=== PATIENT | male | born 1950 | race Caucasian/White ===

== ENCOUNTER 2022-04-09 19:05 | Emergency (ER) | payer OTHER, SELFPAY ==
[2022-04-09 19:24] VITALS: BP 234/107; PULSE 70; RESP 18; TEMP 36.7; O2SAT 98; BMI 25.7
--- NOTE | 2022-04-09 19:29 | DI.RAD.S_ITS ---
PROCEDURE: XR CHEST 1V INDICATIONS: chest pain TECHNIQUE: One view of the chest was acquired. COMPARISON: None. FINDINGS: Surgical changes and devices: None. Lungs and pleura: Lungs are clear. No pleural effusions or pneumothorax. Mediastinum: Mediastinal contours appear normal. Heart size is normal. Bones and chest wall: No suspicious bony lesions. Overlying soft tissues appear unremarkable. IMPRESSION: 1. No acute cardiopulmonary disease. Dictated by: Patric Kaplan M.D. on 04/09/2022 at 21:03 Approved by: Patric Kaplan M.D. on 04/09/2022 at 21:03
[2022-04-09 19:35] VITALS: PULSE 72; RESP 18; O2SAT 97
[2022-04-09 19:45] VITALS: BP 189/89; PULSE 67; RESP 20; O2SAT 98
[2022-04-09 19:56] LABS: Add Manual Diff / Slide Review NO; Basophils Absolute Auto 0 /uL (0-100); Basophils Percent Auto 0.5 % (0-2); Eosinophils Absolute Auto 200 /uL (0-450); Eosinophils Percent Auto 1.7 % (2-4); Hematocrit 42.6 % (41-53); Hemoglobin 14.4 g/dL (13.5-17.5); Lymphocytes Absolute Auto 1700 /uL (1100-4500); Lymphocytes Percent Auto 18.7 % (25-40); Mean Corpuscular HGB Conc 33.7 % (30-36); Mean Corpuscular Hemoglobin 31.3 PG (26-34); Mean Corpuscular Volume 92.9 fL (80-100); Monocytes Absolute Auto 800 /uL (0-900); Monocytes Percent Auto 8.9 % (3-14); Neutrophils Absolute Auto 6200 /uL (1500-7000); Neutrophils Percent Auto 70.2 % (50-75); Platelet Count 263 X10^3/uL (150-400); Red Blood Cell Count 4.59 X10^6/uL (4.5-5.9); Red Cell Distribution Width 12.8 % (11.6-14.8); White Blood Cell Count 8.9 X10^3/uL (4.5-11.0)
[2022-04-09 20:00] VITALS: BP 196/93; PULSE 67; RESP 13; O2SAT 97
[2022-04-09 20:03] LABS: HEMOLYSIS 19 (0-50); Potassium 4.1 mmol/L (3.4-5.1)
[2022-04-09 20:04] LABS: Alanine Aminotransferase 19 IU/L (<50); Albumin 4.5 g/dL (3.5-5.0); Albumin Globulin Ratio 1.3 (1.0-2.8); Alkaline Phosphatase 58 U/L (38-126); Aspartate Aminotransferase 24 IU/L (17-59); BUN Creatinine Ratio 14.6 (6-22); Bilirubin Total 0.7 mg/dL (0.2-1.3); Blood Urea Nitrogen 14 mg/dL (9-20); Carbon Dioxide 25 mmol/L (22-32); Chloride 102 mmol/L (98-107); Creatine Kinase 201 U/L (55-170); Estimated Glomerular Filt Rate > 60 mL/min (>60); Globulin 3.5 g/dL (1.7-4.1); Glucose 103 mg/dL (80-110); Lipase 120 U/L (23-300); Magnesium 2.1 mg/dL (1.6-2.3); Sodium 138 mmol/L (137-145)
--- NOTE | 2022-04-09 20:04 | ED_ITS ---
HPI - General Adult General Chief complaint: Hypertension Stated complaint: High Blood Pressure Time Seen by Provider: 04/09/22 19:48 Source: patient Mode of arrival: Ambulatory History of Present Illness HPI narrative: Patient is a 71-year-old male. No prior history of high blood pressure. A couple weeks ago was seen in an outside facility because he was having some dizziness and lightheadedness. Was diagnosed with high blood pressure. Had a workup there to include a head CT. He was told to take his blood pressure at home. Was not started on any medicines. He has been taking his blood pressure at home. They have been ranging from the 160s to 190s systolic. Today he started have some fullness in his head and took his blood pressure was elevated so he came to the emergency department for evaluation. Denies chest pain. No shortness of breath. No lower extremity swelling. Has not tried anything for his symptoms prior to arrival. Related Data Previous Rx's Medication Instructions Recorded lisinopril 10 mg tablet 10 mg PO DAILY #30 tabs 04/09/22 Allergies Allergy/AdvReac Type Severity Reaction Status Date / Time No Known Allergies Allergy Uncoded 04/09/22 19:28 Review of Systems Constitutional Constitutional: Reports system reviewed and no additional complaints, except as documented ENT Ears, Nose, Mouth, and Throat: Reports system reviewed and no additional complaints, except as documented Cardiovascular Cardiovascular: Reports system reviewed and no additional complaints, except as documented Respiratory Respiratory: Reports system reviewed and no additional complaints, except as documented Gastrointestinal Gastrointestinal: Reports system reviewed and no additional complaints, except as documented Integumentary/Breasts Skin/Breast: Reports system reviewed and no additional complaints, except as documented Neurologic Neurologic: Reports system reviewed and no additional complaints, except as documented Patient History Medical History Pure hypercholesterolemia (09/18/16) Sensorineural hearing loss (SNHL) of both ears (09/18/16) Surgical History (Updated 09/25/17 @ 05:18 by Conversion Provider) History of tonsillectomy Family History (Updated 04/30/16 @ 00:00 by Conversion Provider) Brother Age: 73 Heart disease Social History Smoking Status: Never smoker Smoking Status: Never smoker Substance Use Type: does not use Exam Initial Vital Signs Initial Vital Signs: Vital Signs Temperature 98.0 F 04/09/22 19:24 Pulse Rate 70 04/09/22 19:24 Respiratory Rate 18 04/09/22 19:24 Blood Pressure 234/107 H 04/09/22 19:24 Pulse Oximetry 98 04/09/22 19:24 Oxygen Delivery Method 04/09/22 19:24 HENMT Head: normal to inspection and normocephalic Resp Effort & Inspection: normal respiratory effort Auscultation: clear to auscultation bilaterally Cardio Rate: regular rate Rhythm: regular rhythm GI Inspection: normal to inspection Palpation: soft and No tender Skin General: no rashes or lesions noted Neuro General: patient alert, patient awake, patient oriented x3 and moves all extremities Extrem General: No edema Course Orders Ordered: ED Orders 04/09/22 19:29 XR chest 1V Stat EKG-12 Lead Stat 04/09/22 19:40 Complete Blood Count AUTO DIFF Stat Comprehensive Metabolic Panel Stat Lipase Stat Magnesium Stat Troponin & CK Cardiac Panel Stat Discontinued Medications Lisinopril (Lisinopril 10 Mg Tablet) 10 mg PO NOW ONE Stop: 04/09/22 20:47 Last Admin: 04/09/22 20:58 Dose: 10 mg Documented By: ARETHA Vital Signs Vital signs: Vital Signs - 8 hr 04/09/22 19:24 04/09/22 19:35 04/09/22 19:45 Temperature 98.0 F Pulse Rate 70 72 Respiratory Rate 18 18 Blood Pressure 234/107 H 189/89 H Pulse Oximetry 98 97 Oxygen Delivery Method Room Air 04/09/22 19:45 04/09/22 20:00 04/09/22 20:00 Temperature Pulse Rate 67 67 Respiratory Rate 20 13 Blood Pressure 196/93 H Pulse Oximetry 98 97 Oxygen Delivery Method 04/09/22 20:30 04/09/22 20:30 04/09/22 21:00 Temperature Pulse Rate 65 67 Respiratory Rate 18 18 Blood Pressure 192/88 H 194/90 H Pulse Oximetry 96 96 Oxygen Delivery Method Medical Decision Making Lab Data Lab results reviewed: Yes I reviewed the patient's lab results. Result diagrams: 04/09/22 19:40 04/09/22 19:40 Labs: Lab Results 04/09/22 04/09/22 Range/Units 19:40 19:40 WBC 8.9 (4.5-11.0) X10^3/uL RBC 4.59 (4.5-5.9) X10^6/uL Hgb 14.4 (13.5-17.5) g/dL Hct 42.6 (41-53) % MCV 92.9 (80-100) fL MCH 31.3 (26-34) PG MCHC 33.7 (30-36) % RDW 12.8 (11.6-14.8) % Plt Count 263 (150-400) X10^3/uL Neut % (Auto) 70.2 (50-75) % Lymph % (Auto) 18.7 L (25-40) % [place] % (Auto) 8.9 (3-14) % Eos % (Auto) 1.7 L (2-4) % Baso % (Auto) 0.5 (0-2) % Neut # (Auto) 6200 (2380-2587) /uL Lymph # (Auto) 1700 (5948-9893) /uL [place] # (Auto) 800 (0-900) /uL Eos # (Auto) 200 (0-450) /uL Baso # (Auto) 0 (0-100) /uL Sodium 138 (137-145) mmol/L Potassium 4.1 (3.4-5.1) mmol/L Chloride 102 (98-107) mmol/L Carbon Dioxide 25 (22-32) mmol/L BUN 14 (9-20) mg/dL Creatinine 0.96 (0.66-1.25) mg/dL Estimated GFR > 60 (>60) mL/min BUN/Creatinine Ratio 14.6 (6-22) Glucose 103 (80-110) mg/dL Calcium 9.0 (8.4-10.2) mg/dL Magnesium 2.1 (1.6-2.3) mg/dL Total Bilirubin 0.7 (0.2-1.3) mg/dL AST 24 (17-59) IU/L ALT 19 (<50) IU/L Alkaline Phosphatase 58 (38-126) U/L Total Creatine Kinase 201 H (55-170) U/L CK-MB (CK-2) 2.79 H (<2.37) ng/mL CK-MB (CK-2) Rel Index 1.4 L (1.5-5.0) % Troponin I < 0.012 (0.01-0.034) ng/mL Total Protein 8.0 (6.3-8.2) g/dL Albumin 4.5 (3.5-5.0) g/dL Globulin 3.5 (1.7-4.1) g/dL Albumin/Globulin Ratio 1.3 (1.0-2.8) Lipase 120 (23-300) U/L Imaging Data Chest x-ray: Radiologist's Impression: [address] [address] XRay Report Signed Patient: Leonardo Rudd MR#: [id number] : 1950 Acct:[id number] Age/Sex: 71 / M Date of Service: 04/09/22 Loc: ED Accession Number: [id number] ?? Procedure: XR chest 1V Ordering Provider: Bart Ellis D.O. PROCEDURE:? XR CHEST 1V ? INDICATIONS:? chest pain ? TECHNIQUE:? One view of the chest was acquired.? ? COMPARISON:? None. ? FINDINGS:? ? Surgical changes and devices:? None.? ? Lungs and pleura:? Lungs are clear.? No pleural effusions or pneumothorax.? ? Mediastinum:? Mediastinal contours appear normal.? Heart size is normal.? ? Bones and chest wall:? No suspicious bony lesions.? Overlying soft tissues appear unremarkable.? ? IMPRESSION:? ? 1.? No acute cardiopulmonary disease. ? ? ? Dictated by: Patric Kaplan M.D. on 04/09/2022 at 21:03 ? ? Approved by: Patric Kaplan M.D. on 04/09/2022 at 21:03?? ECG Data Attestation: I personally reviewed and interpreted this ECG as follows: Interpretation: Sinus rhythm Normal axis LVH Normal QRS Normal QTC No ST T wave changes MDM Narrative Medical decision making narrative: No signs of acute end-organ dysfunction secondary to his hypertension today. Had a long discussion with him regarding this. Will start him on lisinopril. He has a follow-up with a new primary doctor in approximately 1 month from now. He will take his blood pressure at home and record these values so that he can talk with his primary doctor about any potential change in medication. Discussed specific return precautions and follow-up instructions. He expressed understanding and agreement. Discharge Plan Departure Patient Disposition: Home Clinical Impression: Hypertension Instructions: DI for High Blood Pressure Activity Restrictions/Additional Instructions: Start taking the blood pressure medication as directed. Also recommend that you continue to take your blood pressure on a daily basis like we discussed and record these values. Keep your appointment that you have with your primary provider. Return to the emergency department for any new or worsening symptoms. Prescriptions: New lisinopril 10 mg tablet 10 mg PO DAILY Qty: 30 2RF Referrals: Miscellaneous,Doctor, MD [Primary Care Provider] - Visit Report Forms: Patient Portal/API
[2022-04-09 20:15] LABS: Troponin I < 0.012 ng/mL (0.01-0.034)
[2022-04-09 20:18] LABS: CKMB % Relative Index 1.4 % (1.5-5.0); Creatine Kinase MB 2.79 ng/mL (<2.37)
[2022-04-09 20:30] VITALS: BP 192/88; PULSE 65; RESP 18; O2SAT 96
[2022-04-09] MEDS: lisinopriL 10 MG TABLET PO (20:58)
[2022-04-09 21:00] VITALS: BP 194/90; PULSE 67; RESP 18; O2SAT 96
== END 2022-04-09 21:23 | disposition home or self-care (01) ==
PROVIDERS: Emergency Provider Emergency Medicine; Family Provider Family Medicine
DX: I10 Essential (primary) hypertension (principal); R07.9 Chest pain, unspecified
CPT/HCPCS: 36415; 71045; 80053; 82550; 82553; 83690; 83735; 84484; 85025; 93005; 93010; 99284

== ENCOUNTER 2024-07-01 12:06 | Emergency (ER) | payer OTHER, SELFPAY ==
[2024-07-01 12:19] VITALS: BP 188/91; PULSE 74; RESP 18; TEMP 36.8; O2SAT 99; BMI 21.7
[2024-07-01 14:05] LABS: Influenza A - CEPHEID Flu A POSITIVE (NEGATIVE); Influenza B - CEPHEID Flu B NEGATIVE (NEGATIVE); Respiratory Syncytial Virus Negative (Negative)
[2024-07-01 14:06] LABS: COVID-19 CEPHEID 4-PLEX PCR Negative (Negative)
--- NOTE | 2024-07-01 14:28 | ED_ITS ---
HPI - Nausea/Vomiting/Diarrhea General Chief complaint: Nausea/Vomiting/Diarrhea Stated complaint: diarrhea, vomiting t-6 Time Seen by Provider: 07/01/24 14:17 History of Present Illness HPI Narrative: Patient here complaining 6 days of nausea vomiting diarrhea. He has mostly watery diarrhea. Has difficulty keeping anything in with eating or drinking. has similar symptoms. No syncope no dizziness. No black or bloody stools. Patient in no distress. Smiling and interacting appropriately. Related Data Previous Rx's Medication Instructions Recorded lisinopril 10 mg tablet 10 mg PO DAILY #30 tabs 04/09/22 ondansetron 4 mg disintegrating 4 mg PO Q8H PRN nausea and 07/01/24 tablet vomiting #20 tabs Allergies Allergy/AdvReac Type Severity Reaction Status Date / Time No Known Allergies Allergy Uncoded 04/09/22 19:28 Review of Systems Review of Systems Narrative: GENERAL: Negative chills, fatigue, malaise, fever, sweats. HEENT: Negative sinus pain, ear pain, sore throat RESPIRATORY: Negative dyspnea, cough CARDIOVASCULAR: Negative chest pain, palpitations GASTROINTESTINAL: Negative black or bloody stools, positive diarrhea nausea, vomiting, negative abdominal pain : Negative dysuria, frequency, hematuria MUSCULOSKELETAL: Negative muscle or bony pain SKIN: Negative rash, skin lesions NEUROLOGIC: Negative weakness, numbness ROS Unobtainable: All systems reviewed & are unremarkable except as noted in HPI and below Patient History Medical History Pure hypercholesterolemia (09/18/16) Sensorineural hearing loss (SNHL) of both ears (09/18/16) Surgical History (Updated 09/25/17 @ 05:18 by Conversion Provider) History of tonsillectomy Family History (Updated 04/30/16 @ 00:00 by Conversion Provider) Brother Age: 76 Heart disease Social History Smoking Status: Never smoker Smoking Status: Never smoker Exam Narrative Exam Narrative: GENERAL: in no distress, not toxic not dyspneic HEAD: Normocephalic. EYES: Pupils equal round ENT: Mucous membranes moist. NECK: Trachea midline. CARDIOVASCULAR: Regular rate and rhythm RESPIRATORY: Clear to auscultation. Breath sounds equal bilaterally. No wheezes, rales, or rhonchi. GASTROINTESTINAL: Abdomen soft, non-tender, no peritoneal signs no guarding or rebound bowel sounds are present EXTREMITIES: No gross deformities. BACK: No flank tenderness. NEURO: AOx4. Clear speech SKIN: Warm and dry PSYCH: Not anxious, is cooperative Initial Vital Signs Initial Vital Signs: Vital Signs Temperature 98.2 F 07/01/24 12:19 Pulse Rate 74 07/01/24 12:19 Respiratory Rate 18 07/01/24 12:19 Blood Pressure 188/91 H 07/01/24 12:19 Pulse Oximetry 99 07/01/24 12:19 Oxygen Delivery Method Room Air 07/01/24 12:19 Course Orders Ordered: Discontinued Medications Sodium Chloride (Normal Saline 0.9%) 1,000 mls @ 1,000 mls/hr IV BOLUS ONE Stop: 07/01/24 15:26 Last Infusion: 07/01/24 15:33 Dose: Infused Documented By: Admin: 07/01/24 14:37 Dose: 1,000 mls/hr Documented By: VU Ondansetron HCl (Ondansetron 4 Mg/2 Ml Inj) 4 mg IV NOW ONE Stop: 07/01/24 14:28 Last Admin: 07/01/24 14:38 Dose: 4 mg Documented By: VU Vital Signs Vital signs: Vital Signs - 8 hr 07/01/24 12:19 07/01/24 15:46 Temperature 98.2 F Pulse Rate 74 75 Respiratory Rate 18 18 Blood Pressure 188/91 H 192/88 H Pulse Oximetry 99 100 Oxygen Delivery Method Room Air Room Air MDM - Nausea/Vomiting/Diarrhea Lab Data 07/01/24 14:35 07/01/24 14:35 Labs: Lab Results 07/01/24 07/01/24 Range/Units 12:25 14:35 WBC 12.1 H (4.5-11.0) X10^3/uL RBC 5.04 (4.5-5.9) X10^6/uL Hgb 15.5 (13.5-17.5) g/dL Hct 46.8 (41-53) % MCV 93.0 (80-100) fL MCH 30.8 (26-34) PG MCHC 33.2 (30-36) % RDW 12.7 (11.6-14.8) % Plt Count 275 (150-400) X10^3/uL Neut % (Auto) 78.5 H (50-75) % Lymph % (Auto) 11.3 L (25-40) % [place] % (Auto) 9.0 (3-14) % Eos % (Auto) 0.6 L (2-4) % Baso % (Auto) 0.6 (0-2) % Neut # (Auto) 9500 H (3195-2446) /uL Lymph # (Auto) 1400 (4991-9315) /uL [place] # (Auto) 1100 H (0-900) /uL Eos # (Auto) 100 (0-450) /uL Baso # (Auto) 100 (0-100) /uL Sodium 138 (137-145) mmol/L Potassium 3.7 (3.4-5.1) mmol/L Chloride 106 (98-107) mmol/L Carbon Dioxide 19 L (22-32) mmol/L BUN 11 (9-20) mg/dL Creatinine 0.91 (0.66-1.25) mg/dL Estimated GFR > 60 (>60) mL/min BUN/Creatinine Ratio 12.1 (6-22) Glucose 96 (80-110) mg/dL Calcium 9.1 (8.4-10.2) mg/dL Total Bilirubin 1.1 (0.2-1.3) mg/dL AST 35 (17-59) IU/L ALT 25 (<50) IU/L Alkaline Phosphatase 47 (38-126) U/L Total Protein 8.1 (6.3-8.2) g/dL Albumin 4.6 (3.5-5.0) g/dL Globulin 3.5 (1.7-4.1) g/dL Albumin/Globulin Ratio 1.3 (1.0-2.8) SARS-CoV-2 (PCR) Negative (Negative) Influenza A (RT-PCR) Flu a positive H (NEGATIVE) Influenza B (RT-PCR) Flu b negative (NEGATIVE) RSV (PCR) Negative (Negative) MDM Narrative Medical decision making narrative: Patient here complaining 6 days of nausea vomiting diarrhea. He has mostly watery diarrhea. Has difficulty keeping anything in with eating or drinking. has similar symptoms. No syncope no dizziness. No black or bloody stools. Patient in no distress. Smiling and interacting appropriately After history and exam CBC CMP respiratory panel Zofran normal saline, exam is reassuring. No imaging indicated. Patient is positive for the flu MDM Medical records reviewed: No recent visit for this complaint Differential considered: Includes but not limited to viral gastroenteritis appendicitis pancreatitis Lab Test results independently reviewed as above. Pertinent findings: Positive influenza WBC 12.1 sodium 138 potassium 3.7 BUN 11 creatinine 0.91 Consultations: None indicated Treatments: Zofran normal saline Re-evaluations: 3:57 p.m.. Patient feeling much better after Zofran and IV fluids. No nausea or vomiting or diarrhea here. He desires discharge home. Return precautions reviewed. Discussion: Appropriate for discharge home exam is reassuring. Return precautions reviewed patient. He desires discharge home., blood pressure noted. However patient's previous visits have had similar high blood pressure. Appropriate for follow up with primary care for blood pressure re-evaluation. Patient asymptomatic, no chest pain no shortness a breath and numbness tingling or weakness no headache Diagnosis: Influenza gastroenteritis Discharge Plan Departure Patient Disposition: Home Clinical Impression: Influenza, Viral gastroenteritis Instructions: DI for Influenza -- Adult Activity Restrictions/Additional Instructions: You have tested positive for the flu. This is likely causing your symptoms. Keep well hydrated. Return if worse if any questions or concerns. See family doctor in a week for re-evaluation. Prescription for nausea medication has been sent to your pharmacy to continue. Return if worse if any questions or concerns Prescriptions: New ondansetron 4 mg tablet,disintegrating 4 mg PO Q8H PRN (Reason: nausea and vomiting) Qty: 20 0RF No Action lisinopril 10 mg tablet 10 mg PO DAILY Qty: 30 2RF Referrals: Miscellaneous,DoctorMD [Primary Care Provider] - Stand Alone Forms: Patient Portal/API/Survey
[2024-07-01] MEDS: SODIUM CHLORIDE 0.9% 1,000 ML 1000 ML IV (14:37)
[2024-07-01] MEDS: ONDANSETRON 4 MG/2 ML INJ IV (14:38)
[2024-07-01 14:40] LABS: Add Manual Diff / Slide Review NO; Basophils Absolute Auto 100 /uL (0-100); Basophils Percent Auto 0.6 % (0-2); Eosinophils Absolute Auto 100 /uL (0-450); Eosinophils Percent Auto 0.6 % (2-4); Hematocrit 46.8 % (41-53); Hemoglobin 15.5 g/dL (13.5-17.5); Lymphocytes Absolute Auto 1400 /uL (1100-4500); Lymphocytes Percent Auto 11.3 % (25-40); Mean Corpuscular HGB Conc 33.2 % (30-36); Mean Corpuscular Hemoglobin 30.8 PG (26-34); Monocytes Absolute Auto 1100 /uL (0-900); Neutrophils Absolute Auto 9500 /uL (1500-7000); Neutrophils Percent Auto 78.5 % (50-75); Platelet Count 275 X10^3/uL (150-400); Red Blood Cell Count 5.04 X10^6/uL (4.5-5.9); Red Cell Distribution Width 12.7 % (11.6-14.8); White Blood Cell Count 12.1 X10^3/uL (4.5-11.0)
[2024-07-01 14:52] LABS: Alanine Aminotransferase 25 IU/L (<50); Albumin 4.6 g/dL (3.5-5.0); Albumin Globulin Ratio 1.3 (1.0-2.8); Alkaline Phosphatase 47 U/L (38-126); Aspartate Aminotransferase 35 IU/L (17-59); BUN Creatinine Ratio 12.1 (6-22); Bilirubin Total 1.1 mg/dL (0.2-1.3); Blood Urea Nitrogen 11 mg/dL (9-20); Calcium 9.1 mg/dL (8.4-10.2); Carbon Dioxide 19 mmol/L (22-32); Chloride 106 mmol/L (98-107); Estimated Glomerular Filt Rate > 60 mL/min (>60); Globulin 3.5 g/dL (1.7-4.1); Glucose 96 mg/dL (80-110); HEMOLYSIS 45 (0-50); Potassium 3.7 mmol/L (3.4-5.1); Sodium 138 mmol/L (137-145); Total Protein 8.1 g/dL (6.3-8.2)
[2024-07-01 15:46] VITALS: BP 192/88; PULSE 75; RESP 18; O2SAT 100
== END 2024-07-01 16:09 | disposition home or self-care (01) ==
PROVIDERS: Emergency Provider Emergency Medicine; Family Provider Family Medicine
DX: J10.1 Influenza due to other identified influenza virus with other respiratory manifestations (principal); A08.4 Viral intestinal infection, unspecified; R19.7 Diarrhea, unspecified; I10 Essential (primary) hypertension
CPT/HCPCS: 0241U; 36415; 80053; 85025; 96361; 96374; 99284; J2405

== ENCOUNTER 2024-07-14 12:47 | Emergency (ER) | payer OTHER, SELFPAY ==
[2024-07-14 12:54] VITALS: BP 202/91; PULSE 77; RESP 18; TEMP 36.4; O2SAT 100; BMI 21.4
[2024-07-14 13:16] LABS: Add Manual Diff / Slide Review NO; Basophils Absolute Auto 0 /uL (0-100); Basophils Percent Auto 0.4 % (0-2); Eosinophils Absolute Auto 100 /uL (0-450); Eosinophils Percent Auto 0.9 % (2-4); Hematocrit 44.9 % (41-53); Hemoglobin 14.9 g/dL (13.5-17.5); Lymphocytes Absolute Auto 1200 /uL (1100-4500); Lymphocytes Percent Auto 10.1 % (25-40); Mean Corpuscular HGB Conc 33.1 % (30-36); Mean Corpuscular Hemoglobin 31.1 PG (26-34); Monocytes Absolute Auto 1000 /uL (0-900); Neutrophils Absolute Auto 9900 /uL (1500-7000); Neutrophils Percent Auto 80.6 % (50-75); Platelet Count 284 X10^3/uL (150-400); Red Blood Cell Count 4.78 X10^6/uL (4.5-5.9); White Blood Cell Count 12.2 X10^3/uL (4.5-11.0)
[2024-07-14 13:32] LABS: Alanine Aminotransferase 27 IU/L (<50); Albumin 4.5 g/dL (3.5-5.0); Albumin Globulin Ratio 1.5 (1.0-2.8); Alkaline Phosphatase 53 U/L (38-126); Aspartate Aminotransferase 34 IU/L (17-59); BUN Creatinine Ratio 15.5 (6-22); Bilirubin Total 1.9 mg/dL (0.2-1.3); Blood Urea Nitrogen 15 mg/dL (9-20); Calcium 8.9 mg/dL (8.4-10.2); Carbon Dioxide 23 mmol/L (22-32); Chloride 102 mmol/L (98-107); Estimated Glomerular Filt Rate > 60 mL/min (>60); Glucose 94 mg/dL (80-110); HEMOLYSIS < 15 (0-50); Lipase 82 U/L (23-300); Potassium 4.3 mmol/L (3.4-5.1); Sodium 136 mmol/L (137-145); Total Protein 7.5 g/dL (6.3-8.2)
--- NOTE | 2024-07-14 15:33 | ED_ITS ---
<Statement entered by Elder Danielson DO - 07/14/24 16:01> Dr. Danielson: I was immediately available in the department for consultation. I did not actually see the patient. HPI - Abdominal Pain General Chief Complaint: Abdominal Pain Stated Complaint: Stomach pain N/D Time Seen by Provider: 07/14/24 14:13 History of Present Illness HPI narrative: 74-year-old male presents to the ED with 1 week of nausea, abdominal discomfort. Patient was diagnosed with influenza a last week, prescribed Zofran. Patient states that he has continued to experience uneasiness in his gut which he equates to nausea. Patient states he has not been eating very well since he is afraid of being nauseous. Patient states he does not like medications and has not been taking the Zofran. No abdominal pain, fever, chills, chest pain, shortness of breath. Patient states he has had chronic GI symptoms for the last 3 years which has caused him to gain significant weight and prevents him from eating very well. Patient states he has a PCP appointment with a new doctor that is upcoming later this week to be further evaluated for this. It appears that patient has not seen his prior PCP in 3 years. Related Data Previous Rx's Medication Instructions Recorded lisinopril 10 mg tablet 10 mg PO DAILY #30 tabs 04/09/22 ondansetron 4 mg disintegrating 4 mg PO Q8H PRN nausea and 07/01/24 tablet vomiting #20 tabs ondansetron 4 mg disintegrating 4 mg PO Q8H PRN nausea and 07/14/24 tablet vomiting 7 days #21 tabs Allergies Allergy/AdvReac Type Severity Reaction Status Date / Time No Known Allergies Allergy Uncoded 04/09/22 19:28 Review of Systems Constitutional Constitutional: Denies chills, Denies fatigue, Denies fever(s), Denies frequent falls, Denies lethargy and Denies weakness Eyes Eyes: Denies change in vision, Denies eye discharge, Denies irritation and Denies loss of vision ENT Ears, Nose, Mouth, and Throat: Denies change in voice, Denies dizziness, Denies neck pain, Denies sore throat and Denies throat swelling Cardiovascular Cardiovascular: Denies chest pain, Denies irregular heart rhythm, Denies lightheadedness, Denies palpitations, Denies dyspnea, Denies dyspnea on exertion and Denies orthopnea Respiratory Respiratory: Denies cough, Denies dyspnea, Denies dyspnea on exertion and Denies wheezing Gastrointestinal Gastrointestinal: Denies abdominal pain, Denies change in bowel habits, Denies diarrhea, Reports nausea and Denies vomiting Comments: Gut feels uneasy Musculoskeletal Musculoskeletal: Denies neck pain and Denies numbness Integumentary/Breasts Skin/Breast: Denies pruritus, Denies erythema, Denies rash and Denies wounds Neurologic Neurologic: Denies behavioral changes, Denies confusion, Denies dizziness, Denies frequent falls, Denies loss of vision, Denies numbness and Denies weakness Psychiatric Psychiatric: Denies anxiety, Denies behavioral changes, Denies confusion, Denies depression, Denies homicidal ideation and Denies suicidal ideation Endocrine Endocrine: Denies fatigue, Denies flushing and Denies palpitations Hematologic/Lymphatic Hematologic/Lymphatic: Denies easy bruising Allergic/Immunologic Allergic/Immunologic: Denies urticaria, Denies throat swelling and Denies wheezing Patient History Medical History Pure hypercholesterolemia (09/18/16) Sensorineural hearing loss (SNHL) of both ears (09/18/16) Surgical History History of tonsillectomy Family History Brother Age: 76 Heart disease Social History Smoking Status: Never smoker Smoking Status: Never smoker Exam Narrative Exam Narrative: Const General:?cooperative, healthy appearing and comfortable [facility] Head:?normal to inspection Ears:?hearing grossly normal bilaterally Nose:?external nose normal Face and sinus:?normal facial exam and sinuses nontender Mouth:?oral mucosae normal Throat:?posterior oropharynx normal Eyes General:?appearance normal, both eyes and all related structures Neck Neck:?normal visual inspection and no lymphadenopathy noted Resp Effort & Inspection:?normal respiratory effort Auscultation:?clear to auscultation bilaterally Cardio Rate:?regular rate Rhythm:?regular rhythm GI Abdomen is soft, nondistended, nontender to palpation. Neuro General:?patient alert, patient awake and patient oriented x3 Initial Vital Signs Initial Vital Signs: Vital Signs Temperature 97.5 F L 07/14/24 12:54 Pulse Rate 77 07/14/24 12:54 Respiratory Rate 18 07/14/24 12:54 Blood Pressure 202/91 H 07/14/24 12:54 Pulse Oximetry 100 07/14/24 12:54 Oxygen Delivery Method Room Air 07/14/24 12:54 Course Orders Ordered: ED Orders 07/14/24 12:59 EKG-12 Lead Stat 07/14/24 13:00 Complete Blood Count AUTO DIFF Stat Comprehensive Metabolic Panel Stat Lipase Stat Ondansetron HCl (Ondansetron 4 Mg/2 Ml Inj) 4 mg IV NOW PRN PRN Reason: Nausea And Vomiting Ondansetron HCl (Ondansetron 4 Mg Odt) 4 mg PO NOW PRN PRN Reason: Nausea And Vomiting Vital Signs Vital signs: Vital Signs - 8 hr 07/14/24 12:54 Temperature 97.5 F L Pulse Rate 77 Respiratory Rate 18 Blood Pressure 202/91 H Pulse Oximetry 100 Oxygen Delivery Method Room Air MDM - Abdominal Pain Lab Data 07/14/24 13:00 07/14/24 13:00 Labs: Lab Results 07/14/24 Range/Units 13:00 WBC 12.2 H (4.5-11.0) X10^3/uL RBC 4.78 (4.5-5.9) X10^6/uL Hgb 14.9 (13.5-17.5) g/dL Hct 44.9 (41-53) % MCV 94.0 (80-100) fL MCH 31.1 (26-34) PG MCHC 33.1 (30-36) % RDW 13.0 (11.6-14.8) % Plt Count 284 (150-400) X10^3/uL Neut % (Auto) 80.6 H (50-75) % Lymph % (Auto) 10.1 L (25-40) % [place] % (Auto) 8.0 (3-14) % Eos % (Auto) 0.9 L (2-4) % Baso % (Auto) 0.4 (0-2) % Neut # (Auto) 9900 H (9600-4311) /uL Lymph # (Auto) 1200 (9062-8063) /uL [place] # (Auto) 1000 H (0-900) /uL Eos # (Auto) 100 (0-450) /uL Baso # (Auto) 0 (0-100) /uL Sodium 136 L (137-145) mmol/L Potassium 4.3 (3.4-5.1) mmol/L Chloride 102 (98-107) mmol/L Carbon Dioxide 23 (22-32) mmol/L BUN 15 (9-20) mg/dL Creatinine 0.97 (0.66-1.25) mg/dL Estimated GFR > 60 (>60) mL/min BUN/Creatinine Ratio 15.5 (6-22) Glucose 94 (80-110) mg/dL Calcium 8.9 (8.4-10.2) mg/dL Total Bilirubin 1.9 H (0.2-1.3) mg/dL AST 34 (17-59) IU/L ALT 27 (<50) IU/L Alkaline Phosphatase 53 (38-126) U/L Total Protein 7.5 (6.3-8.2) g/dL Albumin 4.5 (3.5-5.0) g/dL Globulin 3.0 (1.7-4.1) g/dL Albumin/Globulin Ratio 1.5 (1.0-2.8) Lipase 82 (23-300) U/L Point of care testing: Urine Dip Bedside Urine Glucose Negative Bedside Urine Bilirubin - Negative Bedside Urine Ketone +/- 5 Urine Specific [place] 1.015 Bedside Urine Occult Blood - Negative Bedside Urine pH 5.5 Bedside Urine Protein - Negative Bedside Urine Urobilinogen - Negative Bedside Urine Nitrite - Negative Bedside Urine Leukocytes - Negative Esterase MDM Narrative Medical decision making narrative: 74-year-old male presents to the ED with 1 week of nausea, abdominal discomfort. Patient's symptoms are consistent with influenza a. Physical exam is reassuring for a benign abdomen. Recommend patient keep his PCP appointment for further evaluation of his chronic GI symptoms. ED return precautions discussed with patient. Patient verbalized understanding. Medical records reviewed: Yes Discharge Plan Departure Patient Disposition: Home Clinical Impression: Nausea Instructions: DI for Nausea -- Adult Activity Restrictions/Additional Instructions: You were evaluated in the ED today for nausea. Given that you were diagnosed with influenza a last week, nausea, vomiting and diarrhea are very much common symptoms. It is advised that you do take the Zofran that was prescribed for you in order to alleviate the nausea and be able to eat. Please continue to stay well hydrated. It is reassuring that you have an appointment with your PCP in 3 days. Return to the ED if you have worsening symptoms. Prescriptions: New ondansetron 4 mg tablet,disintegrating 4 mg PO Q8H PRN (Reason: nausea and vomiting) 7 Days Qty: 21 0RF No Action lisinopril 10 mg tablet 10 mg PO DAILY Qty: 30 2RF ondansetron 4 mg tablet,disintegrating 4 mg PO Q8H PRN (Reason: nausea and vomiting) Qty: 20 0RF Stand Alone Forms: Patient Portal/API/Survey
[2024-07-14 15:44] VITALS: BP 199/88; PULSE 67; RESP 18; TEMP 36.7; O2SAT 98
== END 2024-07-14 15:47 | disposition home or self-care (01) ==
PROVIDERS: Student in an Organized Health Care Education/Training Program; Emergency Provider Student in an Organized Health Care Education/Training Program; Family Provider Family Medicine
DX: R11.0 Nausea (principal); R10.9 Unspecified abdominal pain
CPT/HCPCS: 36415; 80053; 81003; 83690; 85025; 99283

== ENCOUNTER 2024-08-16 17:20 | Emergency (ER) | payer OTHER, SELFPAY ==
--- NOTE | 2024-08-16 | DI.RAD.S_ITS ---
PROCEDURE: XR ABDOMEN 1V INDICATIONS: HERNIA SURGERY TWO DAYS AGO TECHNIQUE: One view of the abdomen acquired. COMPARISON: None. FINDINGS: Surgical changes and devices: None. Bowel: Bowel gas pattern is normal. Soft tissues: No suspicious abdominal calcifications. Visualized solid organ contours appear normal in size. Bones: No suspicious bony lesions. IMPRESSION: No radiographic evidence of bowel obstruction or pneumoperitoneum. Dictated by: Tyron Hill M.D. on 08/16/2024 at 17:29 Approved by: Tyron Hill M.D. on 08/16/2024 at 17:29
[2024-08-16 17:32] VITALS: BP 207/95; PULSE 93; RESP 16; TEMP 36.4; O2SAT 97; BMI 23.0
--- NOTE | 2024-08-16 17:41 | DI.RAD.S_ITS ---
PROCEDURE: XR CHEST 1V INDICATIONS: chest pain TECHNIQUE: One view of the chest was acquired. COMPARISON: [facility], CR, XR CHEST 1V, 04/09/2022, 19:58. FINDINGS: Surgical changes and devices: None. Lungs and pleura: Lungs are clear. No pleural effusions or pneumothorax. Mediastinum: Mediastinal contours appear normal. Heart size is normal. Bones and chest wall: No suspicious bony lesions. Overlying soft tissues appear unremarkable. IMPRESSION: No acute cardiothoracic process. Dictated by: Tyron Hill M.D. on 08/16/2024 at 17:23 Approved by: Tyron Hill M.D. on 08/16/2024 at 17:28
[2024-08-16 18:04] LABS: Add Manual Diff / Slide Review NO; Basophils Absolute Auto 0 /uL (0-100); Basophils Percent Auto 0.1 % (0-2); Eosinophils Absolute Auto 0 /uL (0-450); Eosinophils Percent Auto 0.2 % (2-4); Hematocrit 42.9 % (41-53); Hemoglobin 14.4 g/dL (13.5-17.5); Lymphocytes Absolute Auto 600 /uL (1100-4500); Lymphocytes Percent Auto 3.5 % (25-40); Mean Corpuscular HGB Conc 33.5 % (30-36); Mean Corpuscular Hemoglobin 31.4 PG (26-34); Mean Corpuscular Volume 93.5 fL (80-100); Monocytes Absolute Auto 1200 /uL (0-900); Monocytes Percent Auto 6.7 % (3-14); Neutrophils Absolute Auto 15900 /uL (1500-7000); Neutrophils Percent Auto 89.5 % (50-75); Platelet Count 301 X10^3/uL (150-400); Red Blood Cell Count 4.58 X10^6/uL (4.5-5.9); Red Cell Distribution Width 13.1 % (11.6-14.8); White Blood Cell Count 17.8 X10^3/uL (4.5-11.0)
[2024-08-16 18:07] LABS: Prothrombin Time 11.6 SECONDS (9.4-12.5)
[2024-08-16 18:10] LABS: PTT Partial Thromboplastin Tim 31 SECONDS (25.1-36.5)
[2024-08-16 18:12] LABS: Alanine Aminotransferase 25 IU/L (<50); Albumin 4.7 g/dL (3.5-5.0); Albumin Globulin Ratio 1.3 (1.0-2.8); Alkaline Phosphatase 54 U/L (38-126); Aspartate Aminotransferase 33 IU/L (17-59); BUN Creatinine Ratio 22.7 (6-22); Bilirubin Total 1.8 mg/dL (0.2-1.3); Blood Urea Nitrogen 22 mg/dL (9-20); Calcium 9.5 mg/dL (8.4-10.2); Carbon Dioxide 33 mmol/L (22-32); Chloride 94 mmol/L (98-107); Creatine Kinase 112 U/L (55-170); Estimated Glomerular Filt Rate > 60 mL/min (>60); Globulin 3.6 g/dL (1.7-4.1); Glucose 141 mg/dL (80-110); HEMOLYSIS 23 (0-50); Lipase 90 U/L (23-300); Magnesium 2.5 mg/dL (1.6-2.3); Potassium 4.2 mmol/L (3.4-5.1); Sodium 136 mmol/L (137-145); Total Protein 8.3 g/dL (6.3-8.2)
[2024-08-16 18:23] LABS: NT-proBNP (BNP-Adult 18+) 191 pg/mL (<125); Troponin I < 0.012 ng/mL (0.01-0.034)
[2024-08-16 19:19] VITALS: BP 164/83; PULSE 90; RESP 25; O2SAT 98
--- NOTE | 2024-08-16 19:31 | ED_ITS ---
HPI - Abdominal Pain General Chief Complaint: Abdominal Pain Stated Complaint: severe constipation hernia surgery t-2 Time Seen by Provider: 08/16/24 19:31 Source: patient, RN notes reviewed and old records reviewed Mode of arrival: Ambulatory Limitations: no limitations History of Present Illness HPI narrative: 74-year-old male history of hypertension presents with complaint of constipation 2 days post from left inguinal hernia repair. He had it performed in [place]. States it seems to be healing well he was has a little bit of pain sort of comes and goes when he feel like he has to have a bowel movement. He denies fevers or chills. No nausea. He did vomit yesterday but thinks he had some bad Kefir. Has not had any other nausea or vomiting since. States he has not had a bowel movement yet he has been passing gas regularly. He feels like there is a ball of stool close to the rectal vault were opening. He denies any issues with urination. Has not noticed any redness changing or drainage from his incision site. He has not been taking any narcotic pain medication. He did take milk of magnesia twice earlier today but no other stimulants or laxatives. Patient does take lisinopril daily did have his dose this morning. No known drug allergies. States no other prior surgeries. No tobacco, no alcohol, occasional THC but no other recreational drugs. He was accompanied by his . His primary care physician is Dr. Bennett. Related Data Previous Rx's Medication Instructions Recorded lisinopril 10 mg tablet 10 mg PO DAILY #30 tabs 04/09/22 ondansetron 4 mg disintegrating 4 mg PO Q8H PRN nausea and 07/01/24 tablet vomiting #20 tabs Allergies Allergy/AdvReac Type Severity Reaction Status Date / Time No Known Allergies Allergy Uncoded 08/16/24 17:32 Review of Systems Review of Systems ROS Unobtainable: All systems reviewed & are unremarkable except as noted in HPI and below Patient History Medical History Pure hypercholesterolemia (09/18/16) Sensorineural hearing loss (SNHL) of both ears (09/18/16) Surgical History History of tonsillectomy Family History Brother Age: 76 Heart disease Social History Smoking Status: Never smoker Smoking Status: Never smoker Exam Narrative Exam Narrative: GENERAL: Alert and oriented x three, male in mild distress HEENT: Head normocephalic, atraumatic, EOMI, pupils reactive, face symmetric, moist mucous membranes NECK: Supple, full range of motion CARDIOVASCULAR: Regular rate and rhythm without murmurs, rubs or gallops. RESPIRATORY: Breath sounds equal bilaterally, no wheezes rales or rhonchi. ABDOMEN: Soft, patient was some mild tenderness of the left inguinal region, incision is clean dry and intact appears to be healing there was no erythema, there is a very small amount of ecchymosis at the proximal end of the penis but no other ecchymosis appreciated. Patient is not distended. Normoactive bowel sounds all 4 quadrants. No guarding or rebound, rigidity, no mass : No CVA tenderness EXTREMITIES: Normal range of motion, no clubbing or edema. Neurovascularly intact NEUROLOGICAL: Cranial nerves II through XII grossly intact. Moving all extremities SKIN: Warm, dry, no petechiae, no rashes or lesions. Initial Vital Signs Initial Vital Signs: Vital Signs Temperature 97.5 F L 08/16/24 17:32 Pulse Rate 93 H 08/16/24 17:32 Respiratory Rate 16 08/16/24 17:32 Blood Pressure 207/95 H 08/16/24 17:32 Pulse Oximetry 97 08/16/24 17:32 Oxygen Delivery Method Room Air 08/16/24 17:32 Course Orders Ordered: ED Orders 08/16/24 17:41 XR chest 1V Stat EKG-12 Lead Stat 08/16/24 17:53 Complete Blood Count AUTO DIFF Stat Comprehensive Metabolic Panel Stat Lipase Stat Magnesium Stat NT-proBNP (BNP-Adult 18+) Stat PTT Partial Thromboplastin Romeo Stat Prothrombin Time INR Stat Troponin & CK Cardiac Panel Stat Discontinued Medications Aspirin (Aspirin 81 Mg Chew Tab) 324 mg PO NOW ONE Stop: 08/16/24 17:41 Last Admin: 08/16/24 19:30 Dose: Not Given Documented By: MLM Mineral Oil (Mineral Oil 1 Each Enema) 1 each NV NOW ONE Stop: 08/16/24 19:46 Last Admin: 08/16/24 20:13 Dose: 1 each Documented By: ONEAL Vital Signs Vital signs: Vital Signs - 8 hr 08/16/24 19:19 08/16/24 19:19 08/16/24 20:56 Pulse Rate 90 83 Respiratory Rate 25 H 18 Blood Pressure 164/83 H Pulse Oximetry 98 98 08/16/24 20:56 Pulse Rate Respiratory Rate Blood Pressure 157/85 H Pulse Oximetry MDM - Abdominal Pain Lab Data 08/16/24 17:53 08/16/24 17:53 Labs: Lab Results 08/16/24 Range/Units 17:53 WBC 17.8 H (4.5-11.0) X10^3/uL RBC 4.58 (4.5-5.9) X10^6/uL Hgb 14.4 (13.5-17.5) g/dL Hct 42.9 (41-53) % MCV 93.5 (80-100) fL MCH 31.4 (26-34) PG MCHC 33.5 (30-36) % RDW 13.1 (11.6-14.8) % Plt Count 301 (150-400) X10^3/uL Neut % (Auto) 89.5 H (50-75) % Lymph % (Auto) 3.5 L (25-40) % Bonner % (Auto) 6.7 (3-14) % Eos % (Auto) 0.2 L (2-4) % Baso % (Auto) 0.1 (0-2) % Neut # (Auto) 14329 H (2123-7759) /uL Lymph # (Auto) 600 L (6669-4397) /uL Bonner # (Auto) 1200 H (0-900) /uL Eos # (Auto) 0 (0-450) /uL Baso # (Auto) 0 (0-100) /uL PT 11.6 (9.4-12.5) SECONDS INR 1.0 (0.9-1.3) APTT 31 (25.1-36.5) SECONDS Sodium 136 L (137-145) mmol/L Potassium 4.2 (3.4-5.1) mmol/L Chloride 94 L (98-107) mmol/L Carbon Dioxide 33 H (22-32) mmol/L BUN 22 H (9-20) mg/dL Creatinine 0.97 (0.66-1.25) mg/dL Estimated GFR > 60 (>60) mL/min BUN/Creatinine Ratio 22.7 H (6-22) Glucose 141 H (80-110) mg/dL Calcium 9.5 (8.4-10.2) mg/dL Magnesium 2.5 H (1.6-2.3) mg/dL Total Bilirubin 1.8 H (0.2-1.3) mg/dL AST 33 (17-59) IU/L ALT 25 (<50) IU/L Alkaline Phosphatase 54 (38-126) U/L Total Creatine Kinase 112 (55-170) U/L Troponin I < 0.012 (0.01-0.034) ng/mL NT-Pro-B Natriuret Pep 191 H (<125) pg/mL Total Protein 8.3 H (6.3-8.2) g/dL Albumin 4.7 (3.5-5.0) g/dL Globulin 3.6 (1.7-4.1) g/dL Albumin/Globulin Ratio 1.3 (1.0-2.8) Lipase 90 (23-300) U/L MDM Narrative Medical decision making narrative: White count of 17.8 hemoglobin of 14 platelets of 301. Neutrophils 15,900 count. Coags are negative, sodium is 136 chloride 94 CO2 is 33 with a BUN 22 potassium 4.2 with a creatinine of 0.97, glucose 141. Mag is 2.5 total bilirubin is 1.8 was elevated in June at 1.9. Troponins less than 0.012 with a BNP of 191 lipase is 90. Chest x-ray shows no acute cardiothoracic process. Abdominal x-ray shows no acute evidence of bowel obstruction or pneumoperitoneum. Discussed with patient he feels like he likely has some stool right at the rectal vault we will give an enema and re-evaluate. Patient had enema and had success with stool out. Discharge Plan Departure Patient Disposition: Home Clinical Impression: Constipation, S/P hernia repair Instructions: DI for Constipation Activity Restrictions/Additional Instructions: Please follow up with your surgeon. I would recommend continuing to take Colace or Dulcolax once daily until your stooling regularly. Continue to make sure you are hydrating well. Continue with walking and movement as tolerated this will also help to stimulate your gut to help have bowel movement. Please return if you develop fevers, new abdominal, back or flank pain, if your incision starts look red, warm if it opens or has any new drainage, difficulty with urination or other new or concerning changes. Prescriptions: No Action lisinopril 10 mg tablet 10 mg PO DAILY Qty: 30 2RF ondansetron 4 mg tablet,disintegrating 4 mg PO Q8H PRN (Reason: nausea and vomiting) Qty: 20 0RF Stand Alone Forms: Patient Portal/API/Survey
[2024-08-16] MEDS: MINERAL OIL 1 EACH ENEMA PR (20:13)
[2024-08-16 20:56] VITALS: BP 157/85; PULSE 83; RESP 18; O2SAT 98
--- NOTE | 2024-08-16 21:04 | PC.NURSE ---
Pt had large BM, hard packed stool. Pt states feels much improved. Dr Bach notified.
== END 2024-08-16 21:05 | disposition home or self-care (01) ==
PROVIDERS: Emergency Medicine; Emergency Provider Emergency Medicine; Family Provider Family Medicine
DX: K59.00 Constipation, unspecified (principal); Z98.890 Other specified postprocedural states
CPT/HCPCS: 36415; 71045; 74018; 80053; 82550; 83690; 83735; 83880; 84484; 85025; 85610; 85730; 99284